=== PATIENT | male | born 1980 | race Hispanic/Latino ===

== ENCOUNTER 2016-12-11 09:09 | Emergency (ER) | payer OTHER ==
[2016-12-11 09:14] VITALS: O2SAT 98; BMI 29.0
--- NOTE | 2016-12-11 10:01 | ED PDOC ---
Lower Extremity Pain/Injury Time Seen by Provider: 12/11/16 09:25 Chief Complaint (Nursing): Lower Extremity Problem/Injury History Per: Patient History/Exam Limitations: no limitations Onset/Duration Of Symptoms: Hrs (1) Current Symptoms Are (Timing): Still Present Severity: Mild Pain Scale Rating Of: 2 Additional History Per: Patient - Hip Description Of Injury: Tripped - Knee Description Of Injury: Twisted - Ankle/Foot Description Of Injury: Twisted Feet: 1 - pain 2 - pain 3 - pain - Risk Factors DVT Risk Factors: Pos: None Past Medical History Reviewed: Historical Data, Nursing Documentation, Vital Signs Vital Signs: Last Vital Signs Temp 97.9 F 12/11/16 09:13 Pulse 111 H 12/11/16 09:13 Resp 20 12/11/16 09:13 BP 163/90 H 12/11/16 09:13 Pulse Ox 98 12/11/16 09:13 - Medical History PMH: No Chronic Diseases Denies: Chronic Kidney Disease - Surgical History Surgical History: No Surg Hx - Family History Family History: States: Unknown Family Hx - Home Medications Home Medications: Ambulatory Orders Medication Instructions Recorded Oxycodone HCl/Acetaminophen 1 tab PO Q6 #6 tab 10/16/14 [Percocet 325 mg-5 mg] - Allergies Allergies/Adverse Reactions: Allergies Allergy/AdvReac Type Severity Reaction Status Date / Time No Known Allergies Allergy Verified 12/11/16 09:19 Review of Systems ROS Statement: Except As Marked, All Systems Reviewed And Found Negative Physical Exam - Reviewed Nursing Documentation Reviewed: Yes Vital Signs Reviewed: Yes - Physical Exam Appears: Positive for: Well, Non-toxic, No Acute Distress Head Exam: Positive for: ATRAUMATIC, NORMAL INSPECTION Skin: Positive for: Warm, Dry Eye Exam: Positive for: EOMI Cardiovascular/Chest: Positive for: Regular Rate, Rhythm Respiratory: Negative for: Respiratory Distress Extremity: Positive for: Normal ROM, Tenderness (right lateral malleolus, right foot dorsum). Negative for: Deformity, Swelling Neurologic/Psych: Positive for: Alert, Oriented - ECG O2 Sat by Pulse Oximetry: 98 Medical Decision Making Medical Decision Making: Impression Right foot and ankle injury Diff include fracture of right ankle and dislocation of right foot Plan Xray ankle and foot Motrin PO reassess Xrays ankle and foot reviewed no acute findings. Disposition - Clinical Impression Clinical Impression: Ankle injury - Patient ED Disposition Is Patient to be Admitted: No Doctor Will See Patient In The: Office Counseled Patient/Family Regarding: Studies Performed, Diagnosis, Need For Followup - Disposition Referrals: Podiatry Clinic [Outside] Disposition: Routine/Home Disposition Time: 10:33 Condition: GOOD Additional Instructions: Take motrin for pain. Apply ice for 1 days. Follow up with your PCP within 1 week. Instructions: Ankle Sprain (ED)
--- NOTE | 2016-12-11 10:55 | RAD ---
PROCEDURE: Right Foot Radiographs. HISTORY: foot pain injury COMPARISON: None. FINDINGS: BONES: Normal. No fracture. JOINTS: Normal. SOFT TISSUES: Normal. OTHER FINDINGS: None. IMPRESSION: Normal right foot radiographs.
--- NOTE | 2016-12-11 11:16 | RAD ---
PROCEDURE: Right Ankle Radiographs. HISTORY: ankle pain injury COMPARISON: None FINDINGS: BONES: Normal. No fracture. JOINTS: Normal. No osteoarthritis. Ankle mortise maintained. Talar dome intact SOFT TISSUES: Normal. OTHER FINDINGS: None. IMPRESSION: Normal right ankle radiographs.
[2016-12-11 11:28] VITALS: BP 110/78; PULSE 78; RESP 19; TEMP 97.6
== END 2016-12-11 11:28 | disposition home or self-care (01) ==
LOC: H.ER 09:09
DX: S99.911A Unspecified injury of right ankle, initial encounter (principal); S99.921A Unspecified injury of right foot, initial encounter; X50.9XXA Other and unspecified overexertion or strenuous movements or postures, initial encounter; Y92.89 Other specified places as the place of occurrence of the external cause

== ENCOUNTER 2017-07-17 11:32 | Emergency (ER) | payer OTHER ==
[2017-07-17 11:32] VITALS: BMI 29.0
--- NOTE | 2017-07-17 12:36 | ED PDOC ---
HPI: Headache Time Seen by Provider: 07/17/17 12:17 Chief Complaint (Nursing): Abnormal Skin Integrity Chief Complaint (Provider): Abnormal Skin Entegrity History Per: Patient History/Exam Limitations: no limitations Onset/Duration Of Symptoms: Days (3 weeks) Current Symptoms Are (Timing): Still Present Additional Complaint(s): 36 y/o male presents to the ED with an abscess. Patient states it began 3 weeks ago on the back side of his head. He went to a clinic where he received Augmentin 875 mg BID x 10 however he did not complete the medication in it's entirety. Symptoms improved but last night swelling and pain returned prompting his visit to the ED. He denies any trauma or fever. PMD: Jeanna Barajas Past Medical History Reviewed: Historical Data, Nursing Documentation, Vital Signs Vital Signs: Last Vital Signs Temp 98 F 07/17/17 12:09 Pulse 90 07/17/17 12:09 Resp 18 07/17/17 12:09 BP 161/103 H 07/17/17 12:09 Pulse Ox 98 07/17/17 12:09 - Medical History PMH: No Chronic Diseases Denies: Chronic Kidney Disease - Surgical History Surgical History: No Surg Hx - Family History Family History: States: Unknown Family Hx - Immunization History Hx Tetanus Toxoid Vaccination: Yes - Home Medications Home Medications: Ambulatory Orders Medication Instructions Recorded Oxycodone HCl/Acetaminophen 1 tab PO Q6 #6 tab 10/16/14 [Percocet 325 mg-5 mg] Cephalexin [cephalexin] 500 mg PO Q6 #28 cap 07/17/17 Sulfamethoxazole/Trimethoprim 2 tab PO BID #28 tab 07/17/17 [Bactrim DS 800 mg-160 mg] - Allergies Allergies/Adverse Reactions: Allergies Allergy/AdvReac Type Severity Reaction Status Date / Time No Known Allergies Allergy Verified 07/17/17 12:09 Review of Systems ROS Statement: Except As Marked, All Systems Reviewed And Found Negative Constitutional: Negative for: Fever, Other (trauma) Skin: Positive for: Other (pain and swelling to back of head surface due to abscess) Physical Exam - Reviewed Nursing Documentation Reviewed: Yes Vital Signs Reviewed: Yes - Physical Exam Appears: Positive for: Well, Non-toxic, No Acute Distress Head Exam: Positive for: ATRAUMATIC, NORMOCEPHALIC. Negative for: NORMAL INSPECTION Skin: Negative for: Normal Color (tender indurated mild erythematous nodule on the right ocipital scalp) Eye Exam: Positive for: Normal appearance Neck: Negative for: Normal (left sided posterior cervical LAD) Neurologic/Psych: Positive for: Alert, Oriented (x3). Negative for: Motor/ Sensory Deficits - ECG O2 Sat by Pulse Oximetry: 98 (RA) Pulse Ox Interpretation: Normal Medical Decision Making Medical Decision Making: Time: 12:09 Impression: Early Abscess Plan: * Aspiration of mass Scribe Attestation: Documented by Jennifer Nguyen acting as a scribe for Sincere Bird PA-C. MD Scribe Attestation: All medical record entries made by the Scribe were at my direction and personally dictated by me. I have reviewed the chart and agree that the record accurately reflects my personal performance of the history, physical exam, medical decision making, and the department course for this patient. I have also personally directed, reviewed, and agree with the discharge instructions and disposition. Procedures - Time-Out Type of Procedure: Aspiration of mass Site of Procedure: Occipital scalp Correct Patient: Yes Correct Procedure: Yes Correct Site Marked: Yes PA/Tech: Marge - Additional Procedures Progress: Under sterile conditions mass was aspirated of <1cc of yellow discharge. Pt. tolerated procedure well. Minimal blood loss. Bleeding controlled with manual pressure. Disposition - Clinical Impression Clinical Impression: Abscess - Patient ED Disposition Is Patient to be Admitted: No - Disposition Referrals: [facility] [Outside] Disposition: Routine/Home Disposition Time: 12:30 Condition: STABLE Additional Instructions: Return to ED in 2 days for wound check but return to ED immediately if symptoms worsen. COMPLETE BOTH ANTIBIOTICS IN ITS ENTIRETY Prescriptions: Cephalexin [cephalexin] 500 mg PO Q6 #28 cap Sulfamethoxazole/Trimethoprim [Bactrim DS 800 mg-160 mg] 2 tab PO BID #28 tab Instructions: Abscess Incision and Drainage (DC) Forms: [facility] (Estonian) Print Language: ITALIAN
[2017-07-17 12:54] VITALS: BP 144/88; PULSE 74; RESP 16; TEMP 98.2
[2017-07-17 16:11] VITALS: O2SAT 98
== END 2017-07-17 13:04 | disposition home or self-care (01) ==
LOC: H.ER 11:32
DX: L02.811 Cutaneous abscess of head [any part, except face] (principal)